=== PATIENT | female | born 1985 | race African-American/Black ===

== ENCOUNTER 2019-05-14 16:10 | Inpatient (IN) ==
[2019-05-14] MEDS ORDERED: LR 2,000 ML ONE (16:24)
[2019-05-14] MEDS ORDERED: PEPCID IV PRN (16:36)
[2019-05-14] MEDS ORDERED: REGLAN PO ONE (16:36)
[2019-05-14] MEDS ORDERED: PEPCID PO PRN (16:36)
[2019-05-14] MEDS ORDERED: KEFZOL 1 GM/D5W 1 GM/50 ML IVPB IV PRN (16:36)
[2019-05-14] MEDS ORDERED: LR 500 ML IV ONE (16:36)
[2019-05-14] MEDS ORDERED: ZOFRAN IV PRN (16:36)
[2019-05-14] MEDS ORDERED: PEPCID PO ONE (16:36)
[2019-05-14] MEDS ORDERED: STADOL IV PRN (16:36)
[2019-05-14] MEDS ORDERED: TYLENOL PO PRN (16:36)
[2019-05-14] MEDS ORDERED: PITOCIN 30 UNITS/NS 30 UNIT/500 ML IV.SOLN IV SCH (16:45)
[2019-05-14] MEDS ORDERED: SODIUM CHLORIDE 0.9% INJ SCH (16:45)
[2019-05-14] MEDS ORDERED: LR 1,000 ML IV SCH (16:45)
[2019-05-14 17:17] LABS: BASO# 0.01 X1000 (0.0-0.2); BASO% 0.1 % (0.0-0.8); EOS# 0.17 X1000 (0.0-0.7); EOS% 2.1 % (0.0-10.0); HEMATOCRIT 39.6 % (37.0-47.0); HEMOGLOBIN 13.7 g/dL (12.0-16.0); IMM GRAN# 0.04 X1000 (0.0-0.04); IMM GRAN% 0.5 % (0.0-0.5); LYMPH# 1.91 X1000 (1.2-3.4); LYMPH% 23.4 % (20.5-51.1); MCH 26.6 PG (27-31); MCHC 34.6 g/dL (33-37); MCV 76.7 FL (81-99); MONO# 0.72 X1000 (0.11-0.59); MONO% 8.8 % (1.7-9.3); MPV 12.7 FL (7.4-10.4); NEUT# 5.32 X1000 (1.4-6.5); NEUT% 65.1 % (42.2-75.2); PLT 265 X1000 (130-400); RBC 5.16 XMIL (4.2-5.4); RDW 16.4 % (11.5-14.5); WBC 8.17 X1000 (4.8-10.8)
[2019-05-14] MEDS ORDERED: PITOCIN ONE (17:24)
--- NOTE | 2019-05-14 18:45 | HISTORY AND PHYSICAL ---
HISTORY OF PRESENT ILLNESS: The patient is a 33-year-old black female, G8, P7, who presented in labor. The patient stated that the contractions started at about 1 p.m. today and gradually got worse. On presentation to Labor and Delivery, she was 8 cm dilated with a bulging bag and vertex presentation. She denied any vaginal bleeding or any problems during her . PAST MEDICAL HISTORY: Denies. PAST SURGICAL HISTORY: Denies. ALLERGIES: No known drug allergies. MEDICATIONS: vitamins. PHYSICAL EXAMINATION: VITAL SIGNS: Her blood pressure is 124/86, temperature 98, pulse 83, respirations 18. HEENT: Unremarkable. LUNGS: Clear to auscultation. CARDIOVASCULAR: Regular rate and rhythm. ABDOMEN: Gravid, appropriate for gestational age. VAGINAL EXAM: She is 8-9 cm, bulging bag, 100% effaced, 0 station. ASSESSMENT: Thirty-nine weeks gestation with active labor. PLAN: 1. Admit to Labor and Delivery. 2. Anticipate normal spontaneous vaginal delivery. cc: Carmela Haskins MD
--- NOTE | 2019-05-14 18:53 | OPERATIVE NOTE ---
PROCEDURE DATE : 05/14/2019 DELIVERY SUMMARY: The patient became complete rather quickly and started pushing. Delivered a viable male in the vertex presentation, Apgars 8 at 1 minute and 10 at 5 minutes. Weight 7 pounds 3 ounces, 20.5 inches long. No lacerations or episiotomy. The placenta was spontaneously delivered. The patient was given IM Pitocin; her IV came out during pushing. Uterus is firm. PLAN: The patient is going to go to recovery, and the to the nursery. cc: Carmela Haskins MD
[2019-05-14] MEDS ORDERED: BOOSTRIX VACCINE IM ONE (19:03)
[2019-05-14] MEDS ORDERED: AMBIEN PO PRN (19:03)
[2019-05-14] MEDS ORDERED: XYLOCAINE-MPF 1% INJ PRN (19:03)
[2019-05-14] MEDS ORDERED: PERI MEDS (DERMOPLAST/NUPERCAINAL/TUCKS) MISC PRN (19:03)
[2019-05-14] MEDS ORDERED: BENADRYL PO PRN (19:03)
[2019-05-14] MEDS ORDERED: PITOCIN IM PRN (19:03)
[2019-05-14] MEDS ORDERED: M-M-R II VACCINE SUBQ ONE (19:03)
[2019-05-14] MEDS ORDERED: BENADRYL IV PRN (19:03)
[2019-05-14] MEDS ORDERED: CYTOTEC PO PRN (19:03)
[2019-05-14] MEDS ORDERED: MINERAL OIL PO PRN (19:03)
[2019-05-14] MEDS ORDERED: HYDROXYZINE IM PRN (19:03)
[2019-05-14] MEDS ORDERED: ATARAX PO PRN (19:03)
[2019-05-14 20:31] LABS: URINE SOURCE VOIDED
[2019-05-14 20:36] LABS: BILIRUBIN URINE NEGATIVE (NEGATIVE); BLOOD URINE NEGATIVE (NEGATIVE); COLOR YELLOW; GLUCOSE URINE NEGATIVE (NEGATIVE); KETONE URINE NEGATIVE (NEGATIVE); LEUKOCYTES URINE NEGATIVE (NEGATIVE); NITRITE URINE NEGATIVE (NEGATIVE); PH URINE 5.5; PROTEIN URINE NEGATIVE (NEGATIVE); SP GRAVITY URINE 1.009; TURBIDITY URINE CLEAR (CLEAR); UROBILINOGEN URINE NORMAL (NORMAL)
[2019-05-14 20:53] LABS: UR AMPHETAMINES QUAL NONE DETECTED (NONE DETECT); UR BARBITUATES QUAL NONE DETECTED (NONE DETECT); UR BENZODIAZEPIN QUAL NONE DETECTED (NONE DETECT); UR CANNABINOIDS QUAL NONE DETECTED (NONE DETECT); UR COCAINE QUAL NONE DETECTED (NONE DETECT); UR METHADONE QUAL NONE DETECTED (NONE DETECT); UR OPIATES QUAL NONE DETECTED (NONE DETECT); UR OXYCODONE QUAL NONE DETECTED (NONE DETECT); UR PCP QUAL NONE DETECTED (NONE DETECT)
[2019-05-14] MEDS: MOTRIN PO PRN (22:05)
[2019-05-14] MEDS: PERICOLACE PO SCH (22:06)
[2019-05-15 05:12] LABS: BASO# 0.02 X1000 (0.0-0.2); BASO% 0.2 % (0.0-0.8); EOS# 0.15 X1000 (0.0-0.7); EOS% 1.3 % (0.0-10.0); HEMATOCRIT 36.9 % (37.0-47.0); HEMOGLOBIN 12.7 g/dL (12.0-16.0); IMM GRAN# 0.06 X1000 (0.0-0.04); IMM GRAN% 0.5 % (0.0-0.5); LYMPH# 2.48 X1000 (1.2-3.4); LYMPH% 20.7 % (20.5-51.1); MCH 26.7 PG (27-31); MCHC 34.4 g/dL (33-37); MCV 77.7 FL (81-99); MONO# 0.88 X1000 (0.11-0.59); MONO% 7.3 % (1.7-9.3); MPV 11.8 FL (7.4-10.4); NEUT# 8.39 X1000 (1.4-6.5); PLT 236 X1000 (130-400); RBC 4.75 XMIL (4.2-5.4); RDW 16.6 % (11.5-14.5); WBC 11.98 X1000 (4.8-10.8)
[2019-05-15] MEDS: MOTRIN PO PRN ×3 (05:48→20:01)
--- NOTE | 2019-05-15 07:50 | OB/GYN PROGRESS NOTE ---
Progress Note [employer] - . Patient Problems: Current Active Problems Problem Status Onset Obesity during , delivered Acute Multigravida of advanced maternal age, delivered Acute Normal labor and delivery Acute [employer] Progress Note: Vital Signs - 24 hr 05/14/19 15:56 05/14/19 16:15 05/14/19 19:00 Temperature 98 F 97.8 F 97.3 F L Pulse Rate 83 78 73 Respiratory Rate 18 20 16 Blood Pressure 124/86 114/68 117/57 O2 Sat by Pulse Oximetry 98 99 97 05/14/19 19:15 05/14/19 19:30 05/14/19 20:15 Temperature 97.3 F L 97.3 F L 97.4 F L Pulse Rate 86 70 65 Respiratory Rate 18 16 16 Blood Pressure 101/57 100/59 120/64 O2 Sat by Pulse Oximetry 96 97 97 05/14/19 20:45 05/14/19 21:05 05/14/19 22:00 Temperature 97.4 F L 97.2 F L 97.1 F L Pulse Rate 82 65 70 Respiratory Rate 16 16 16 Blood Pressure 122/74 108/59 112/72 O2 Sat by Pulse Oximetry 98 99 95 05/14/19 23:13 05/15/19 00:12 05/15/19 01:19 Temperature 97.2 F L 97.1 F L 97.1 F L Pulse Rate 66 64 60 Respiratory Rate 16 16 16 Blood Pressure 114/66 123/63 103/58 O2 Sat by Pulse Oximetry 95 98 99 05/15/19 04:47 Temperature 96.9 F L Pulse Rate 71 Respiratory Rate 16 Blood Pressure 105/53 O2 Sat by Pulse Oximetry 94 L Laboratory Results - last 24 hr 05/14/19 05/14/19 05/14/19 16:40 16:40 16:45 WBC 8.17 RBC 5.16 Hgb 13.7 Hct 39.6 MCV 76.7 L MCH 26.6 L MCHC 34.6 RDW Std Deviation 16.4 H Plt Count 265 MPV 12.7 H Immature Gran % (Auto) 0.5 Neut % (Auto) 65.1 Lymph % (Auto) 23.4 Josephine % (Auto) 8.8 Eos % (Auto) 2.1 Baso % (Auto) 0.1 Immature Gran # (Auto) 0.04 Neut # (Auto) 5.32 Lymph # (Auto) 1.91 Josephine # (Auto) 0.72 H Eos # (Auto) 0.17 Baso # (Auto) 0.01 Urine Source Urine Color Urine Turbidity Urine pH Ur Specific [place] Urine Protein Ur Glucose (Stick) Ur Ketones (Stick) Urine Blood Urine Nitrite Urine Bilirubin Urobilinogen Dipstick Urine Leukocytes Urine Opiates Screen NONE DETECTED Ur Oxycodone Screen NONE DETECTED Ur Methadone, Qual NONE DETECTED Ur Barbiturates Screen NONE DETECTED Ur Phencyclidine Scrn NONE DETECTED Ur Amphetamines Screen NONE DETECTED U Benzodiazepines Scrn NONE DETECTED Urine Cocaine Screen NONE DETECTED U Cannabinoids Screen NONE DETECTED RPR NON-REACTIVE 05/14/19 05/15/19 16:45 05:07 WBC 11.98 H RBC 4.75 Hgb 12.7 Hct 36.9 L MCV 77.7 L MCH 26.7 L MCHC 34.4 RDW Std Deviation 16.6 H Plt Count 236 MPV 11.8 H Immature Gran % (Auto) 0.5 Neut % (Auto) 70.0 Lymph % (Auto) 20.7 Josephine % (Auto) 7.3 Eos % (Auto) 1.3 Baso % (Auto) 0.2 Immature Gran # (Auto) 0.06 H Neut # (Auto) 8.39 H Lymph # (Auto) 2.48 Josephine # (Auto) 0.88 H Eos # (Auto) 0.15 Baso # (Auto) 0.02 Urine Source VOIDED Urine Color YELLOW Urine Turbidity CLEAR Urine pH 5.5 Ur Specific [place] 1.009 Urine Protein NEGATIVE Ur Glucose (Stick) NEGATIVE Ur Ketones (Stick) NEGATIVE Urine Blood NEGATIVE Urine Nitrite NEGATIVE Urine Bilirubin NEGATIVE Urobilinogen Dipstick NORMAL Urine Leukocytes NEGATIVE Urine Opiates Screen Ur Oxycodone Screen Ur Methadone, Qual Ur Barbiturates Screen Ur Phencyclidine Scrn Ur Amphetamines Screen U Benzodiazepines Scrn Urine Cocaine Screen U Cannabinoids Screen RPR S: Ms. Greene denies nausea, vomiting, fever, chills, heavy lochia with sylvie ts,breast pain cramping unrelieved by NSAIDs, or depressed mood O: VSS AF Exam NAD HEENT nl Chest nl respiratiomns CVS RRR Abd soft fundus firm, U- nontender Ext no tenderness or excessive swel Current Active Problems Problem Status Onset Normal labor and delivery Acute Multigravida of advanced maternal age, delivered Acute Obesity during , delivered Acute PLAN: Continue care and instruction Anticipate discharge home tomorrow Circumcision preoperative counseling completed including elective indications for procedure, reduction in risks of penile cancer and cystitis, and risks including and not limited to bleeding, infection, hematoma at penile nerve block injection sites, and altered feeding and sleep cycles for 2-3 days after the procedure. She expressed understanding for the topics discussed and wishes for her son to proceed. 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
[2019-05-15] MEDS: PERICOLACE PO SCH (20:01)
[2019-05-16 08:15] VITALS: BP 133/86
--- NOTE | 2019-05-16 08:51 | OB/GYN PROGRESS NOTE ---
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 All Active Problems (Last Reviewed 05/11/19 @ 14:01 by Elda Vance DO) Obesity during , delivered (Acute) Multigravida of advanced maternal age, delivered (Acute) Normal labor and delivery (Acute) Intrauterine (Acute) Discharge today and follow up in 6 weeks discussed including medications, precautions.
--- NOTE | 2019-05-17 18:58 | DISCHARGE SUMMARY ---
ADMISSION DATE: 05/14/2019 DISCHARGE DATE: 05/16/2019 ADMITTING DIAGNOSIS: at 40+ weeks, active labor. FINAL DISCHARGE DIAGNOSES: 1. at 40+ weeks, delivered. 2. Obesity affecting management. 3. Advanced maternal age. 4. Grand multiparity. 5. Viable male . PROCEDURE: Normal spontaneous vaginal delivery. DISCHARGE MEDICATIONS: vitamins once daily, acetaminophen 650 to 1000 mg every 6 hours as needed for pain, prescription of ibuprofen 800 mg every 6 hours as needed for pain #40 with 1 refill. HISTORY OF PRESENT ILLNESS: Allyson is now a 5, para 6-0-1-7, with a history of twins, presenting in active labor at 8 cm on the evening of May 14, and proceeding to an uncomplicated spontaneous delivery. Past medical, social, and family histories are as listed on the outside record and Maternal Medicine consultation, both scanned into the record. ADMITTING LABORATORY: Included hemoglobin 13.7, platelets 265,000. Urine clear. Urine drug screen negative. RPR nonreactive. HOSPITAL COURSE: course was unremarkable with stable vital signs. Afebrile temperature. Postoperative hemoglobin 12.7. Examination on discharge included normal findings with a firm uterus below the umbilicus. Extremities without tenderness or excessive swelling. Lochia within normal. She was up and ambulating normally and obtaining pain relief with NSAIDs only. She was planning to bottle-feed and instructions had been given on nonpharmacologic suppression of . DISPOSITION: Allyson was discharged today in good condition to return to see Dr. Vance within 6 weeks or at any time for heavy vaginal bleeding, unrelieved pain, fever exceeding 100.4 degrees, breast redness or fullness, or depressed mood. Limitations, precautions, medications, and indications for early return were discussed. She will plan to review contraceptive options with Dr. Vance at that visit. cc: Carmela Haskins MD
--- NOTE | 2019-05-18 03:53 | DISCHARGE SUMMARY ---
ERROR -- INCOMPLETE DICTATION. PLEASE REFER TO THE COMPLETE DISCHARGE SUMMARY ON THE RECORD ADMISSION DATE: 05/14/2019 DISCHARGE DATE: 05/16/2019 ADMITTING DIAGNOSIS: Term , active labor. FINAL DISCHARGE DIAGNOSES: 1. Multigravida, advanced age, delivered at term. 2. Obesity during , delivered. 3. Normal labor and delivery. DISCHARGE MEDICATIONS: vitamins once daily; ibuprofen 800 mg every 6 hours as needed for pain #40 with 1 refill transmitted to her pharmacy. HISTORY OF PRESENT ILLNESS: Allyson is now a 6, para 7-0-1-8, with 1 previous twin and 1 spontaneous AB. cc: Carmela Haskins MD MTDD
== END 2019-05-16 13:40 | disposition home or self-care (01) | DRG 807 ==
LOC: OPLD 16:10 → LD 16:11
PROVIDERS: ADMIT Specialist; ATTEND Specialist